=== PATIENT | female | born 1935 | race Caucasian/White ===

== ENCOUNTER 2017-01-05 05:17 | Day surgery (SDC) | payer MEDICARE, OTHER ==
[~2017-01-05 05:17] MED LIST: ASPIRIN325 M3 PO; BACTRIM DS TAB1 EAC2 PO; BUPROPION HCL150 M3 PO; BYSTOLIC5 M1 PO; DELTASONE20 MG PO; FLOVENT HFA1 PUF1 INH; IPRAT-ALBUT 0.5-3 ML; LASIX40 M1 PO; LEVOFLOXACIN500 M1 PO; MIRALAX17 G2 PO; MUCINEX600 M1 PO; MULTIPLE VITAM1 EAC3 PO; OMEGA 3 1,0001 EAC1 PO; OXYGEN; POTASSIUM CHLO20 ME3 PO; PROAIR HFA8.5 GM; STOOL SOFTENER100 M2 PO; [UNRECOGNIZED DRUG - REMARK]
== END 2017-01-05 09:00 ==
LOC: SHSB 05:17 → ORE 07:04 → SHSB 07:48
PROC: 0JB40ZZ Excision of Right Neck Subcutaneous Tissue and Fascia, Open Approach (ICD-10-PCS; principal; 2017-01-05)
PROC: 0JQ40ZZ Repair Right Neck Subcutaneous Tissue and Fascia, Open Approach (ICD-10-PCS; 2017-01-05)
DX: L72.0 Epidermal cyst (principal); E78.5 Hyperlipidemia, unspecified; I34.0 Nonrheumatic mitral (valve) insufficiency; M16.9 Osteoarthritis of hip, unspecified; J44.9 Chronic obstructive pulmonary disease, unspecified; I11.0 Hypertensive heart disease with heart failure; I50.20 Unspecified systolic (congestive) heart failure; E55.9 Vitamin D deficiency, unspecified; I35.1 Nonrheumatic aortic (valve) insufficiency; F17.200 Nicotine dependence, unspecified, uncomplicated; I25.2 Old myocardial infarction; F32.9 Major depressive disorder, single episode, unspecified; Z79.2 Long term (current) use of antibiotics; Z79.52 Long term (current) use of systemic steroids; Z79.82 Long term (current) use of aspirin; Z79.899 Other long term (current) drug therapy; Z86.14 Personal history of Methicillin resistant Staphylococcus aureus infection; Z83.1 Family history of other infectious and parasitic diseases; Z90.49 Acquired absence of other specified parts of digestive tract; Z90.710 Acquired absence of both cervix and uterus; Z90.722 Acquired absence of ovaries, bilateral; Z98.890 Other specified postprocedural states; Z99.81 Dependence on supplemental oxygen